=== PATIENT | female | born 1975 | race Caucasian/White ===

== ENCOUNTER 2025-07-27 14:33 | Emergency (ER) | payer OTHER, SELFPAY ==
--- NOTE | ~2025-07-27 | XR_ITS ---
EXAMINATION: XR wrist RT min 3V, 07/27/2025 14:50 CDT HISTORY: LATERAL FOOSH FROM CHAIR,DISTAL RADIAL PAIN COMPARISON: No comparisons available. Findings: Nondisplaced impacted fracture distal radius with intra-articular extension. Slightly displaced ulnar styloid process fracture. No significant degenerative changes. Soft tissue swelling. Impression: Fractures detailed above Reviewed, dictated and finalized at location P. Impression: Fractures detailed above
[2025-07-27 14:44] VITALS: BP 116/80; PULSE 75; RESP 18; TEMP 36.7; O2SAT 100
--- NOTE | 2025-07-27 14:46 | ED.UPPEXIN ---
HPI - Extremity Injury (Upper) General Chief Complaint: Extremity Injury, Upper Stated Complaint: Fall Injury Right Wrist Injury Source: patient Mode of arrival: ambulatory Limitations: no limitations History of Present Illness HPI narrative: 50 y/o female presented for c/o right wrist pain and swelling after injury today. States she fell off of a chair, and landed on the outstretched hand. Denies numbness tingling or weakness of the hand. Endorses pain with any movement. Has not taken anything for pain. Related Data Home Medications ?Medication ?Instructions ?Recorded ?Confirmed ?Last Taken ?Type cetirizine 10 mg capsule (Zyrtec) 10 mg PO DAILY 07/31/20 04/19/24 Unknown History montelukast 10 mg tablet 10 mg PO DAILY 07/31/20 04/19/24 Unknown History (Singulair) albuterol sulfate 90 mcg/actuation g inhalation 09/04/20 04/19/24 Unknown History aerosol inhaler Allergies Allergy/AdvReac Type Severity Reaction Status Date / Time Sulfa (Sulfonamide Allergy Unknown Skin Verified 07/27/25 14:46 Antibiotics) irritation Review of Systems Review of Systems: CONSTITUTIONAL: Denies body aches, fever, chills CARDIOVASCULAR: Denies chest pain, palpitations, or edema. RESPIRATORY: Denies cough or dyspnea. SKIN: Denies wounds. MUSCULOSKELETAL: reports right wrist pain NEUROLOGIC: Denies numbness, tingling, or weakness. All systems reviewed & are unremarkable except as noted in HPI and below PMFSH Family History Family History Father Hypertension Diabetes mellitus Mother Hypertension Liver disease Social History Social History (Updated 04/19/24 @ 10:49 by uJd Jiang CMA) Smoking status: Never smoker Alcohol intake: current Substance use: never Do You Feel Safe in your Home?: Yes Lack of Transportation: No Lack of Food: Never True Current Housing: I Have Housing Concerned About Future Housing: No Difficulty Paying Gas/Electric Bills: No Difficulty Paying for Meds: No Currently Unemployed: No Education: Bachelor's Degree Difficulty w/ Childcare or Family Care: No Comments At time of signature, I have reviewed and agree with nursing past medical, surgical, social and family history unless otherwise noted. Please see nursing chart for further information. There is no relevant family history pertinent to the presenting complaint Exam Narrative: GENERAL: appears in pain; in no acute distress. CHEST: Speaks in full sentences. No respiratory distress. HEART: Regular rate and rhythm. Normal and equal peripheral pulses. EXTREMITIES: Right wrist swelling noted. Decreased ROM due to pain, cannot tolerate movement. Tender with light palpation. No bruising. Right hand has normal sensation, moves digits. No open wounds or obvious deformity. pulse palpable and equal bilaterally, skin warm, dry, pink. Capillary refill less than 3 seconds. SKIN: Warm, dry NEURO: Alert and oriented x3. PSYCH: Normal mood and affect Course Course Emergency Course: Patient is aware of diagnosis, understands and agrees to treatment plan. Anticipatory guidance given. Patient agrees to follow-up as directed and is aware of reasons to seek care at the emergency department. Portions of this record may have been created with voice recognition software Level of Care: Express Care Visit Vital Signs Vital signs: Vital Signs Temperature 98.1 F 07/27/25 14:44 Pulse Rate 75 07/27/25 14:44 Respiratory Rate 18 07/27/25 14:44 Blood Pressure 116/80 07/27/25 14:44 Pulse Oximetry 100 07/27/25 14:44 Oxygen Delivery Room Air 07/27/25 14:44 Temperature 98.1 F 07/27/25 14:44 Pulse Rate 75 07/27/25 14:44 Respiratory Rate 18 07/27/25 14:44 Blood Pressure 116/80 07/27/25 14:44 Pulse Oximetry 100 07/27/25 14:44 Oxygen Delivery Room Air 07/27/25 14:44 Reviewed Procedures Orthopedic Splinting/Casting Right wrist: OCL: sugar tong Pre-Procedure Neuro Vascular Exam: normal Post-Procedure Neuro Vascular Exam: normal Other Orthopedic Equipment: other ( sling) MDM - Extremity Injury (Upper) MDM Narrative Medical decision making narrative: Discussed physical exam findings and xray. OCL and sling applied. Advised supportive measures and signs/symptoms to go to the ER. Pt is appropriate for outpt treatment and f/u with ortho. Differential Diagnosis Differential diagnosis: Likely sprain and strain of wrist, fracture of wrist and fracture of hand Imaging Data Radiologist's impression: Patient: Jaja Rondon : 1975 MR#: [id number] Age: 50 Acct:[id number] Loc: [facility] ADM Date: 07/27/25Attending Dr: EXAMINATION: XR wrist RT min 3V, 07/27/2025 14:50 CDT HISTORY: LATERAL FOOSH FROM CHAIR,DISTAL RADIAL PAIN COMPARISON: No comparisons available. Findings: Nondisplaced impacted fracture distal radius with intra-articular extension. Slightly displaced ulnar styloid process fracture. No significant degenerative changes. Soft tissue swelling. Discharge Plan Discharge Clinical Impression: Distal radius fracture, right, Fracture of right ulnar styloid Patient Disposition: Home Condition: Stable Instructions: Arm Fracture in Adults (ED), Splint Care (ED) Additional Instructions: Rest, no movement to the right arm ice and elevate the right arm. Motrin 800mg every 8 hours, as needed, for pain (take with food). Tylenol 1000mg every 8 hours. Keep splint clean, dry and in place. Use garbage bag while showering to keep splint dry. Use sling Go to the ER immediately for increased pain, tingling/numbness, swelling, redness, etc Follow up with Orthopedic Surgery in 1 day - please call tomorrow for an appointment. Patient Language: Ethiopian Prescriptions: New ibuprofen 800 mg tablet 800 mg PO TID PRN (Reason: pain) Qty: 15 0RF No Action Zyrtec 10 mg capsule 10 mg PO DAILY montelukast [Singulair] 10 mg tablet 10 mg PO DAILY albuterol sulfate 90 mcg/actuation HFA aerosol inhaler inhalation sertraline 25 mg tablet 25 mg PO DAILY Qty: 90 3RF Follow-up/Referrals: Mike Ross MD [Physician, Orthopedics] Referral Note: Nondisplaced impacted fracture distal radius with intra-articular extension. Slightly displaced ulnar styloid process fracture Peewee Gould DO [Primary Care Provider, Internal Medicine] Time of Disposition: 15:33
[2025-07-27] MEDS: ACETAMINOPHEN 500 MG TABLET 1000 MG PO (15:05)
[2025-07-27] MEDS: IBUPROFEN 400 MG TABLET 800 MG PO (15:06)
== END 2025-07-27 15:59 | disposition home or self-care (01) ==
PROVIDERS: Emergency Provider Nurse Practitioner Family; PCP Internal Medicine
DX: S52.501A Unspecified fracture of the lower end of right radius, initial encounter for closed fracture (principal); S52.611A Displaced fracture of right ulna styloid process, initial encounter for closed fracture; W07.XXXA Fall from chair, initial encounter
CPT/HCPCS: 29130; 73110; 99214; A4565; A9270; G0463